=== PATIENT | male | born 1995 | race Caucasian/White ===

== ENCOUNTER 2024-03-26 11:06 | Emergency (ER) | payer OTHER ==
[2024-03-26] MEDS: Sodium Chloride 0.9% 1,000 ML IV ONE (12:39)
[2024-03-26] MEDS: Ketorolac 30 MG/ML SDV IVPUSH ONE (12:40)
[2024-03-26 12:41] LABS: BASOPHILS ABSOLUTE AUTO 0.02 K/uL (0.00-0.20); BASOPHILS PERCENT AUTO 0.4 % (0.0-1.0); EOSINOPHILS ABSOLUTE AUTO 0.79 K/uL (0.00-0.45); EOSINOPHILS PERCENT AUTO 14.6 % (0.0-6.0); HEMOGLOBIN 16.1 g/dL (14.0-18.0); LYMPHOCYTES ABSOLUTE AUTO 1.57 K/uL (1.00-4.80); LYMPHOCYTES PERCENT AUTO 29.1 % (24.0-44.0); MEAN CORPUSCULAR HEMOGLOBIN 30.7 pg (28.0-32.0); MEAN CORPUSCULAR VOLUME 87.6 fL (83.0-99.0); MEAN PLATELET VOLUME 8.7 fL (9.4-12.4); MONOCYTES ABSOLUTE AUTO 0.38 K/uL (0.00-0.80); NEUTROPHILS ABSOLUTE AUTO 2.64 K/uL (1.80-7.70); NEUTROPHILS PERCENT AUTO 48.9 % (41.0-71.0); PLATELET COUNT,PLT 210 K/uL (150-400); RED BLOOD CELL COUNT 5.25 M/uL (4.52-5.90)
[2024-03-26 13:08] LABS: APPEARANCE,URINE CLEAR; BILIRUBIN,URINE NEGATIVE (NEGATIVE); COLOR,URINE YELLOW; GLUCOSE,URINE NEGATIVE (NEGATIVE); KETONES,URINE NEGATIVE (NEGATIVE); LEUKOCYTE ESTERASE,URINE NEGATIVE (NEGATIVE); NITRITE,URINE NEGATIVE (NEGATIVE); OCCULT BLOOD,URINE TRACE-INTACT (NEGATIVE); PROTEIN,URINE NEGATIVE (NEGATIVE); UROBILINOGEN,URINE 0.2 EU/dL (<2.0)
[2024-03-26 13:20] LABS: A/G RATIO 1.7 (0.9-1.6); ALBUMIN 4.5 g/dL (3.4-5.0); BILIRUBIN TOTAL 0.9 mg/dL (0.2-1.0); CALCIUM 9.3 mg/dL (8.5-10.1); CARBON DIOXIDE,CO2 29.5 mmol/L (21.0-32.0); CREATININE 0.9 mg/dL (0.8-1.3); EST CRCL DRUG DOSING (CG) 99.65 mL/min; PROTEIN TOTAL,TP 7.1 g/dL (6.4-8.2)
[2024-03-26 13:41] LABS: BACTERIA,URINE RARE (NEGATIVE); EPITHELIAL CELLS,URINE RARE (NONE-FEW); WBC,URINE 0-1 (0-5/HPF)
[2024-03-26] MEDS: Iopamidol 755 MG/ML 500 ML Multipack Bottle IVPUSH STA (14:24)
[2024-03-26 14:37] LABS: C. TRACHOMATIS BY PCR NOT DETECTED; N. GONORRHOEAE BY PCR NOT DETECTED
== END 2024-03-26 15:10 | disposition home or self-care (01) ==
LOC: EDBD 11:06 → MW.ED 11:06
DX: R10.31 Right lower quadrant pain (principal); R31.9 Hematuria, unspecified; Z75.8 Other problems related to medical facilities and other health care; Z91.013 Allergy to seafood; Z91.018 Allergy to other foods; Z88.0 Allergy status to penicillin
CPT/HCPCS: 36415; 74177; 80053; 81001; 83690; 85025; 87491; 87591; 96361; 96374; 99284; J1885; J7030; Q9967; 99283